=== PATIENT | female | born 1985 ===

== ENCOUNTER 2024-05-29 11:15 | Inpatient (IN) | payer OTHER, SELFPAY ==
[2024-05-29] VITALS (8 sets, daily range): BP systolic 103–123; BP diastolic 42–77; PULSE 73–99; RESP 16–18; TEMP 36.4–37.1; O2SAT 97–99; BMI 24.7
--- NOTE | 2024-05-29 | ECG_ITS ---
Test Reason : SEIZURE Blood Pressure : */* mmHG Vent. Rate : 81 BPM Atrial Rate : 81 BPM P-R Int : 122 ms QRS Dur : 84 ms QT Int : 474 ms P-R-T Axes : 54 28 63 degrees QTcB Int : 550 ms Normal sinus rhythm Low voltage QRS Nonspecific T wave abnormality Prolonged QT Abnormal ECG No previous ECGs available Referred By: Generic ED Physician Electronically Signed By: Gabriel Rush
--- NOTE | ~2024-05-29 | CT_ITS ---
EXAMINATION: CT HEAD WITHOUT CONTRAST CLINICAL INFORMATION: New onset seizure. COMPARISON: None available. TECHNIQUE: Contiguous axial imaging was performed from the skull base to vertex without intravenous administration of contrast. This CT examination was performed using dose optimization techniques as appropriate, variously including the following: *Automated exposure control *Adjustment of mA and/or kV according to patient size (this includes techniques or standardized protocols for targeted exams where dose is matched to indication/reason for exam; i.e. extremities or head) *Use of iterative reconstruction technique FINDINGS: There is no evidence of intracranial hemorrhage or extra-axial fluid collection. There is no mass effect, or edema. No CT evidence of acute territorial infarct. Ventricles, sulci, and cisterns are normal in size and configuration for patient age. No hydrocephalus. No midline shift. Negative hyperdense MCA sign. Negative insular ribbon sign. No white matter abnormality. Normal pituitary. Globes and orbital contents image normally. No extracranial soft tissue abnormalities. Fatty change of the parotid glands. The paranasal sinuses, mastoid air cells, and tympanic cavities are normally aerated. No suspicious bony abnormalities. There are no acute fractures evident. CT/CT head/brain wo IV con IMPRESSION: No acute intracranial abnormality. Electronically signed by: Porfirio Berman MD 05/29/2024 04:43 PM EDT
--- OUTSIDE RECORDS SUMMARY | 2024-05-29 13:07 | XMS_ITS | Encounter Summary ---
Author Organization [facility] Address [address] [place] [address] Care Team Providers Care Policy And Planning Manager Name Role Phone Peng Hernandez MD Primary Care Provider [phone] Encounter Details Date Type Department Care Team ([facility] Contact Info) Description 05/13/2024 [facility] [address] [place] [address] [place] [phone] Peng Hernandez MD [address] [place] [phone] Social History Tobacco Use Types Packs/Day Years Used Date Smoking Tobacco: Some Days Cigarettes Smokeless Tobacco: Never Alcohol Use Standard Drinks/Week Comments Yes 0 (1 standard drink = 0.6 oz pur e alcohol) Comments No Sex and Gender Information Value Date Recorded Sex Assigned at Not on file Legal Sex Female 6:29 PM EST Gender Identity Not on file Sexual Orientation Not on file documented as of this encounter Plan of Treatment Upcoming Encounters Date Type Department Care Team ([facility] Contact Info) Description 06/26/2024 4:00 PM EDT [facility] [address] [place] [phone] Peng Hernandez MD [address] [place] [phone] 09/09/2024 2:30 PM EDT Office Visit Obstetrics [place]necology [address] [phone] Bridget Hernandez CNM [address] [place] [address] documented as of this encounter Visit Diagnoses Not on filedocumented in this encounter Care Teams Policy And Planning Manager Relationship Specialty Start Date End Date Peng Hernandez MD [address] [place] [address] PCP - General Internal Medicine 12/26/23 documented as of this encounter
--- OUTSIDE RECORDS SUMMARY | 2024-05-29 13:07 | XMS_ITS | Clinical Summary ---
Author Organization [place] [address] [address] [facility] Building Address [address] [place] [address] Phone Care Team Providers Care Table Tender Sludge Name Role Phone Peng Hernandez MD Primary Care Provider [phone] Allergies No known active allergies Medications BUPRENORPHINE HCL SL Place 1 mg under the tongue daily. Active busPIRone (BUSPAR) 15 mg tablet Take 1 Tablet by mouth 3 times daily. 04/04/2023 Active ondansetron (ZOFRAN) 4 mg tablet Take 1 Tablet by mouth every 8 hours as needed for Nausea for up to 7 days. 04/04/2023 Active traZODone (DESYREL) 50 mg tablet Take 1/2 tablet by mouth as needed nightly for sleep. 04/04/2023 Active citalopram (CeleXA) 20 mg tablet Take 1 tablet (20 mg total) by mouth 1 (one) time each day. 90 tablet 1 12/26/2023 Active cloNIDine (CATAPRES) 0.2 mg tabletIndication s:Anxiety disorder, unspecified TAKE 1 TABLET BY MOUTH TWICE A DAY 90 tablet 1 03/12/2024 Active citalopram (CeleXA) 40 mg tablet Take 1 tablet (40 mg total) by mouth 1 (one) time each day. 30 each 1 05/14/2024 07/14/19 25 Active Active Problems Problem Noted Date Diagnosed Date Snoring 01/29/2020 Overview (12/04/2023): 12/2019 Home Sleep Study did not reveal sleep apnea or nocturnal hypoxia. Tobacco use disorder 04/08/2012 Anxiety and depression 09/19/2011 Overview (12/04/2023): Sees therapist Opiate dependence ([facility] V24, [facility] V28) 02/2011 Overview (12/04/2023): suboxone Encounters Date Type Department Care Team Description 05/13/2024 Telephone [facility] - [facility] [address] [place] [address] Peng Hernandez MD information needed 05/13/2024 Telephone Pediatrics - [facility] [address] [place] [address] Peng Hernandez MD from Last 3 Months Immunizations Name Administration Dates Next Due Influenza Quadravalent, MDCK , 0.5ml, preservative free (Flucelvax) 6mo and older 01/19/2020 Influenza Quadravalent, MDCK , 0.5ml, with preservative (Flucelvax) 6mo and older 01/16/2017 Tdap Tetanus diptheria acell ular pertussis (Boostrix; Adacel) 7yo and older 01/16/2017 Surgical History Surgery Date Site/Laterality Comments OTHER SURGICAL HISTORY PROCEDURE: ---- OTHER ----; COMMENT: significant dental history with teeth removed Medical History Medical History Date Comments Depression 09/19/2011 DX:Depression Drug abuse and dependence ([facility] V24, [facility] V28) 09/19/2011 DX:Drug abuse and dependence (HCC) Family History Medical History Relation Name Comments Lung cancer Aunt Lung cancer Father Hypertension Maternal Grandmother Lung cancer Maternal Grandmother Other: colon cancerl Maternal Grandmother Diabetes Other 1 great grandmoth er Stroke Other 2 great grandmoth er Breast cancer Paternal Grandfather Coronary artery disease Neg Hx Relation Name Status Comments Aunt Brother Alive Congenital clef t lip Father Alive Lung cancer (+ smoker); blood clots Maternal Grandmother Mother Alive Alcoholism Other 1 Other 2 Paternal Grandfather Sister 1 Alive x4 - Healthy Sister 2 Alive Sister 3 Alive Sister 4 Alive Son Alive x2 - Healthy Social History Tobacco Use Types Packs/Day Years Used Date Smoking Tobacco: Some Days Cigarettes Smokeless Tobacco: Never Tobacco Cessation:Ready to Q uit: Not Asked; Counseling Given: Not Answered Alcohol Use Standard Drinks/Week Comments Yes 0 (1 standard drink = 0.6 oz pur e alcohol) Comments No Sex and Gender Information Value Date Recorded Sex Assigned at Not on file Legal Sex Female 6:29 PM EST Gender Identity Not on file Sexual Orientation Not on file Obstetrics History Last Filed Vital Signs Vital Sign Reading Time Taken Comments Blood Pressure 122/64 12/26/2023 3:31 PM EST Pulse 68 12/26/2023 3:31 PM EST Temperature - - Respiratory Rate 16 12/26/2023 3:31 PM EST Oxygen Saturation - - Inhaled Oxygen Concentration - - Weight 81.2 kg (179 lb) 12/26/2023 3:31 PM EST Height 157.5 cm (5' 2 ) 06/05/2023 11:41 AM EDT Body Mass Index 32.74 06/05/2023 11:41 AM EDT Plan of Treatment Upcoming Encounters Date Type Department Care Team (Late st Contact Info) Description 06/26/2024 4:00 PM EDT Office Visit Internal Medicine - [address] [phone] Peng Hernandez MD [address] [place] [address] 09/09/2024 2:30 PM EDT Office Visit Obstetrics and Gynecology - [address] [phone] Bridget Hernandez CNM [address] [place] [phone] Health Maintenance Due Date Last Done Comments Breast Cancer Screening 1985 Hepatitis B Vaccines (1 of 3 - 19+ 3-dose series) 11/19/2002 Pneumococcal Vaccine: Pediatrics (0 to 5 Years) and At-Risk Patients (6 to 64 Years) (1 of 2 - PCV) 11/19/2002 Social Influencers of Health Screening 01/27/2022 COVID-19 Vaccine (1 - 2023-2 5 season) 2023 Cholesterol Screening (Lipid Panel) 08/18/2024 08/19/2019 Depression Screening 08/19/2024 08/20/2023 Influenza Vaccine (Season Ended) 2024 01/19/2020, 01/16/2017 Cervical Cancer Screening: HPV 01/24/2025 01/25/2020 DTaP,Tdap,and Td Vaccines (2 - Td or Tdap) 01/16/2027 01/16/2017 HIV Screening Completed 01/16/2017 Hepatitis C Screening Completed 01/16/2017 HIB Vaccines Aged Out No longer eligi ble based on patient's age to complete this topic HPV Vaccines Aged Out No longer eligi ble based on patient's age to complete this topic Hepatitis A Vaccines Aged Out No long er eligible based on patient's age to complete this topic IPV Vaccines Aged Out No longer eligi ble based on patient's age to complete this topic MMR Vaccines Aged Out No longer eligi ble based on patient's age to complete this topic Meningococcal ACWY Vaccine Aged Out N o longer eligible based on patient's age to complete this topic Meningococcal B Vaccine Aged Out No l onger eligible based on patient's age to complete this topic RSV Immunization Patients Under 20 months Aged Out No longer eligible b ased on patient's age to complete this topic Varicella Vaccines Aged Out No longer eligible based on patient's age to complete this topic Procedures Procedure Name Priority Date/Time Associated Diagnosis Comments DEPRESSION SCREENING Routine 08/20/2023 HPV Routine 01/25/2020 LIPID PANEL Routine 08/19/2019 HEPATITIS C SCREENING Routine 01/16/2017 HIV SCREENING Routine 01/16/2017 from Last 3 Months or Most Recently Relevant to Health Maintenance Results * Depression Screening (08/20/2023) Pathologist [facility] Depression Screening abstracted us Historical Provider MD HEALTH MAINTENANCE Final Result * Cervical Cancer Screening: HPV (01/25/2020) Pathologist [facility] Cervical Cancer Screening: HPV negative, abstracted [facility] Provider HEALTH MAINTENANCE Final Result * (ABNORMAL) Lipid panel (08/19/2019) [facility] LDL/HDL Ratio 5(A) 0 - 4 Triglycerides 63 0 - 150 mg/dL Cholesterol 195 0 - 200 mg/dL HDL 42 >=40 mg/dL LDL Cholesterol 141(A) 0 - 100 mg/dL Blood Venous blood specimen / Unknown Result [facility] Provider LAB BLOOD ORDERABLES Anaya l Result * HIV Screening (01/16/2017) [facility] HIV Screening abstracted Result [facility] Provider HEALTH MAINTENANCE Final Result * Hepatitis C Screening (01/16/2017) [facility] Hepatitis C Screening abstracted [facility] Provider HEALTH MAINTENANCE Final Result from Last 3 Months or Most Recently Relevant to Health Maintenance Insurance * Guarantor: Amber Leblanc Account Type Relation to Patient Date of Phone Billing Address Personal/Family Self 1985 [address] [place] [address] [facility] Care Teams Table Tender Sludge Relationship Specialty Start Date End Date Peng Hernandez MD [address] [place] [phone] PCP - General Internal Medicine 12/26/23
[2024-05-29 13:08] LABS: MANUAL DIFF FLAG NO
[2024-05-29] MEDS: LORazepam 1 MG TABLET 2 MG PO (13:08)
[2024-05-29] MEDS: PHENobarbitaL sodium 130 MG/ML IM ONCE 229 MG IM (13:09)
[2024-05-29 13:12] LABS: Basophils Percent Auto 0.9 % (0-2); Eosinophils Percent Auto 0.9 % (0-4); Hematocrit 33.8 % (37.0-47.0); Hemoglobin 11.9 g/dl (12.0-16.0); Imm Gran Abs Auto 0.02 X10*3/uL (0.00-0.03); Imm Gran Pct Auto 0.5 % (0.0-0.4); Lymphocytes Absolute Auto 0.5 X10*3/uL (1.2-4.9); Lymphocytes Percent Auto 10.8 % (20-40); Mean Corpuscular HGB Conc 35.2 g/dl (31.0-35.0); Mean Corpuscular Hemoglobin 33.7 pg (27.0-33.0); Mean Corpuscular Volume 95.8 fL (80.0-98.0); Mean Platelet Volume 12.1 fL (9.4-12.3); Monocytes Absolute Auto 0.2 X10*3/uL (0.1-1.2); Monocytes Percent Auto 4.1 % (2-11); Neutrophils Absolute Auto 3.6 x10*3/uL (2.0-8.3); Neutrophils Percent Auto 82.8 % (45-73); Red Blood Count 3.53 X10*6/uL (4.20-5.50); Red Cell Distribution Width 12.7 % (11.0-16.0); White Blood Count 4.3 X10*3/uL (4.8-10.8)
[2024-05-29 13:16] LABS: Platelet Count 93 X10*3/uL (160-400)
[2024-05-29 13:24] LABS: Alanine Aminotransferase 172 U/L (0-31); Albumin Level 3.7 g/dL (3.5-5.0); Alkaline Phosphatase 81 U/L (39-117); Anion Gap 15 (12-20); Aspartate Amino Transferase 243 U/L (5-31); Blood Urea Nitrogen 8 mg/dL (9-16); Calcium 8.4 mg/dL (8.4-10.2); Carbon Dioxide 23 mmol/L (22-29); Chloride 105 mmol/L (96-108); Creatinine Clr Calc Pharmacy 110.5; Estimated Glomerular Filt Rate > 60; Ethanol 41 mg/dL; Glucose Random 163 mg/dL (60-115); Potassium 3.2 mmol/L (3.3-5.1); Sodium 140 mmol/L (135-145); Total Protein 6.2 g/dL (6.5-8.0)
[2024-05-29 13:26] LABS: Lactic Acid 4.2 mmol/L (0.5-2.0)
[2024-05-29 13:28] LABS: Lipase 122 U/L (8-78); Magnesium 1.4 mg/dL (1.6-2.6)
--- NOTE | 2024-05-29 13:29 | ED_ITS ---
HPI - Seizure General Chief Complaint: Seizure Stated Complaint: ETOH WITHDRAWAL,SEIZURE X 2 WITNESSED PER EMS Time Seen by Provider: 05/29/24 12:31 Source: patient, EMS, RN notes reviewed and old records reviewed Mode of arrival: EMS History of Present Illness ED Provider: Edna Cho PA-C HPI Narrative: 38-year-old female with a past medical history of ETOH abuse presenting to the ED via EMS from outpatient dual program at [facility] s/p 2 witnessed tonic- clonic seizures by staff. no reported head trauma, patient was lowered to ground. Admits to drinking about 4 drinks of vodka daily, last drink last night, states she is trying to stop drinking. Denies history of seizures, denies history of alcohol withdrawal seizures, hallucinations, headache, neck/ back pain, CP/ SOB, abdominal pain, nausea /vomiting, recent illness. Denies drug use. Related Data Allergies Allergy/AdvReac Type Severity Reaction Status Date / Time No Known Allergies Allergy Verified 05/29/24 11:44 Review of Systems 2 Review of Systems: Yes all other systems are reviewed and are negative Constitutional: Constitutional: Reports as per HPI Neurologic: Denies Abnormal speech present [facility] Past Medical History Attestation statement: The following information was validated with the patient. Source: old records reviewed Social History Social History Alcohol intake: current Alcohol intake frequency: 3 or more drinks per day Smoked in Last 30 Days: No Advance Directives: No Advance Directives Information Provided: Yes Patient : No Physical Exam 2 Vital Signs: Vital Signs: Last Vital Signs Temp 98.7 F 05/29/24 13:32 Pulse 82 05/29/24 13:32 Resp 18 05/29/24 13:32 BP 123/42 L 05/29/24 13:32 Pulse Ox 97 05/29/24 13:32 O2 Del Method Room Air 05/29/24 13:32 BMI result Body Mass Index 24.7 Const: General: cooperative, healthy appearing and no acute distress O rientation/consciousness: patient oriented x3 Limitations: no limitations HEENT: Head: Yes normal to inspection and Yes atraumatic Ears: hearing grossly normal bilaterally General nose exam: Normal external nose present Face and sinus: Yes normal facial exam Eyes: General: appearance normal, both eyes and all related structures EOM: EOMs intact bilaterally Neck: Neck: Yes normal visual inspection and Yes no meningeal signs Resp: Effort & Inspection: normal respiratory effort and no respiratory distress Auscultation: clear to auscultation bilaterally Cardio: Rate: regular rate Heart sounds: S1 normal heart sound present and S2 normal heart sound present GI: Inspection: Yes normal to inspection Palpation (GI): Soft to palpation, nontender, no guarding and not rigid Back/Spine/Pelvis: Other: No midline cervical/thoracic/lumbar spinous tenderness/step-off or deformity Skin: Rashes: no rashes Wounds: no wounds Neuro: Other: no tongue fasciculations General: patient oriented x3, tone normal, moves all extremities, no meningeal signs, no focal motor deficits and CN's II-XI intact bilaterally C ranial nerves: Yes CN's II-XII intact bilaterally and Yes Bilaterally intact EOM present Cognition (Neuro): normal cognition Speech: No Abnormal speech present Motor exam (neuro): 5/5 motor strength present throughout and Tremors during motor activity present ( mildly tremulous) Extrem: General: Yes normal to inspection Course Course Course Narrative: -1400-- Mildly leukopenic, no priors to compare. Potassium low to 3.2 > p.o. repletion ordered. Lactic acidosis of 4.2 consistent with seizure-like activity. - Magnesium low 1.4 > 2 g IV repletion ordered - AST/ALT and lipase elevated likely from ETOH abuse > abdomen is soft and nontender - ethanol 41. Viral testing negative > plan to admit for further management Medications Administered Generic Name Dose Route Start Last Admin Trade Name Freq PRN Reason Stop Dose Admin Sodium Chloride 1,000 mls @ 999 mls/hr 05/29/24 13:30 05/29/24 13:41 Ns IV 05/29/24 14:30 999 mls/hr .Q1H1M [facility] Administration Discontinued Medications Generic Name Dose Route Start Last Admin Trade Name Freq PRN Reason Stop Dose Admin Lorazepam 2 mg 05/29/24 12:37 05/29/24 13:08 Lorazepam 1 Mg Tablet PO 05/29/24 12:38 2 mg ONCE ONE Administration Phenobarbital Sodium 229 mg 05/29/24 13:00 05/29/24 13:09 Phenobarbital Sodium 130 Mg/Ml Im Once IM 05/29/24 13:01 229 mg ONCE ONE Administration Medical Decision Making Medical Decision Making [facility] Narrative: 38-year-old female with a past medical history of ETOH abuse presenting to the ED via EMS from outpatient dual program at [facility] s/p 2 witnessed tonic- clonic seizures by staff. On exam vital signs stable, NAD, nontoxic appearing, physical exam as noted above. No focal neuro deficits. Mildly tremulous. No midline spinous tenderness. Concern for ETOH withdrawal seizure. Rule out metabolic infectious etiologies. Low suspicion for ICH or fractures Plan: EKG, labs, UA, tox screen, p.o. Ativan, phenobarb protocol, admission Please refer to course for remaining clinical decision making, interpretation of labs/imaging results, and discussions with consultants and/or family members. Differential Diagnosis Differential Diagnoses: The differential diagnosis associated with the presentation includes As above Admission/Observation Consideration of admission/observation: Escalation of care including admission/observation considered Lab Data [facility] Lab Attestation statement: I reviewed the patient's lab results. 05/29/24 13:00 05/29/24 13:00 Labs: Lab Results 05/29/24 05/29/24 05/29/24 Range/Units 13:00 13:01 13:02 WBC 4.3 L (4.8-10.8) X10*3/uL RBC 3.53 L (4.20-5.50) X10*6/uL Hgb 11.9 L (12.0-16.0) g/dl Hct 33.8 L (37.0-47.0) % MCV 95.8 (80.0-98.0) fL MCH 33.7 H (27.0-33.0) pg MCHC 35.2 H (31.0-35.0) g/dl RDW 12.7 (11.0-16.0) % Plt Count 93 L (160-400) X10*3/uL MPV 12.1 (9.4-12.3) fL Immature Gran % (Auto) 0.5 H (0.0-0.4) % Neut % (Auto) 82.8 H (45-73) % Lymph % (Auto) 10.8 L (20-40) % [place] % (Auto) 4.1 (2-11) % Eos % (Auto) 0.9 (0-4) % Baso % (Auto) 0.9 (0-2) % Lymph # (Auto) 0.5 L (1.2-4.9) X10*3/uL [place] # (Auto) 0.2 (0.1-1.2) X10*3/uL Eos # (Auto) 0.0 (0.0-0.4) X10*3/uL Baso # (Auto) 0.0 (0.0-0.2) X10*3/uL Abs Immat Gran (auto) 0.02 (0.00-0.03) X10*3/uL Absolute Neuts (auto) 3.6 (2.0-8.3) x10*3/uL Absolute Nucleated RBC 0.000 (0.0-0.012) X10*3/uL Nucleated RBC % (auto) 0.0 (0.0-0.2) /100WBC Sodium 140 (135-145) mmol/L Potassium 3.2 L (3.3-5.1) mmol/L Chloride 105 (96-108) mmol/L Carbon Dioxide 23 (22-29) mmol/L Anion Gap 15 (12-20) BUN 8 L (9-16) mg/dL Creatinine 0.56 (0.5-1.4) mg/dL Estim Creat Clear Calc 110.5 Estimated GFR > 60 Random Glucose 163 H (60-115) mg/dL Lactic Acid 4.2 H* (0.5-2.0) mmol/L Calcium 8.4 (8.4-10.2) mg/dL Magnesium 1.4 L* (1.6-2.6) mg/dL Total Bilirubin 1.0 (0.0-1.0) mg/dL AST 243 H (5-31) U/L ALT 172 H (0-31) U/L Alkaline Phosphatase 81 (39-117) U/L Total Protein 6.2 L (6.5-8.0) g/dL Albumin 3.7 (3.5-5.0) g/dL Lipase 122 H (8-78) U/L Ethyl Alcohol 41 mg/dL Influenza Type A (PCR) NEGATIVE (Negative) Influenza Type B (PCR) NEGATIVE (Negative) RSV RNA Qual (PCR) NEGATIVE (Negative) SARS-CoV-2 RNA (RT-PCR) NEGATIVE (Negative) Independent Interpretation I performed an independent interpretation of an: EKG Radiology Impression Discussion of test interpretation with radiology: I have reviewed the radiologist's reading. Independent Historian Clinical information obtained from an independent historian. History obtained from or confirmed by: EMS External Record Review External record reviewed: Inpatient record, Office record, Outpatient record, Prior outpatient labs, Prior outpatient radiology, Primary care record and Outside ED record Tests considered The following testing was considered but not selected: As above Prescription Management I considered prescription management with: Pain Medication Chronic Conditions Patient?s care impacted by: Other Social Determinants Patient?s care significantly limited by Social Determinants of Health including: Inadequate housing, Low income, Alcoholism and drug addiction in family, Problems related to primary support group, Unemployment, Problems related to employment and Other Social Determinant of Health Critical Care Time Critical Care Time Critical Care Time: Yes Total Critical Care Time: 35 Attestation: I have personally provided critical care time exclusive of time spent on separately billable procedures. Time includes review of lab data, radiology results, discussion with consultants, and monitoring for potential decompensation. Intervention performed as documented. Discharge Plan Discharge Clinical Impression: Alcohol withdrawal seizure Patient Disposition: Admitted As Inpatient Print Language: Romanian
[2024-05-29] MEDS: 0.9 % Sodium Chloride 1,000 ML 999 ML IV (13:41)
[2024-05-29 13:47] LABS: Influenza A PCR NEGATIVE (Negative); Influenza B PCR NEGATIVE (Negative); Resp Syncy Virus RNA Qual PCR NEGATIVE (Negative); SARS COV2 PCR INHOUSE NEGATIVE (Negative)
--- NOTE | 2024-05-29 14:08 | PM.IMHP ---
History of Present Illness Date of Service: 05/29/24 Attending physician on admission: Ramy Hdez Chief Complaint: Alcohol withdrawal Pt is a 38-year-old female with a PMH significant for alcohol use disorder and depression?who presents to the ED after 2 witnessed episodes of unresponsiveness with tonic-clonic like movements. Pt has been feeling increasingly depressed the past few months and recently started in outpatient therapy program at [facility]. Today pt was hoping to meet with a therapist to discuss medication changes. Was sitting in a group session when had two [id number] episodes of unresponsiveness with tonic-clonic like activity that was witnessed by staff. Pt was lowered to the ground by staff and participants, and did not have head strike or other trauma. EMS report pt was postictal, though was alert and oriented by the time she arrived to the ED. Pt does not remember this incident and denies any hx of previous seizures or alcohol withdrawal. Pt states that she has been drinking daily for the past few months. States ?something is broke in the and I am trying to numb it?. Last drink was last night before bedtime. Pt states has been drinking for ?strong? vodka drinks daily, often starting drinking when she wakes up. Pt has attempted to cut back on drinking at various times, but reports drank her normal amount yesterday. Admits to increased anxiety, but currently denies headache. No nausea, vomiting, abdominal pain. Denies auditory, visual, or tactile hallucinations. In the ED pt with elevated HR of 94, vitals otherwise stable and WNL. Labs were significant for mild normocytic anemia of 11.9 over 33.8, platelets 93, potassium 3.2, lactic acid 4.2, magnesium 1.4, AST 243, ALT 172, and lipase 122. Ethyl alcohol level 41. Tested negative for flu, COVID, RSV. EKG demonstrated normal sinus rhythm with prolonged QTc of 550 but no evidence of significant ST elevations or depressions. Pt was treated in the ED with IVF, Ativan 2 mg p.o., and started on phenobarb protocol. Pt admitted to the hospital for treatment and further evaluation of seizure-like activity in setting of acute alcohol withdrawal. Review of Systems Review of Systems: Negative except for that which is stated in the HPI. [facility] Medical History (Updated 05/29/24 @ 15:58 by ANTONINO Lyons) Depression Alcohol use disorder Social History Alcohol intake: current Alcohol intake frequency: 3 or more drinks per day Smoked in Last 30 Days: No Advance Directives: No Advance Directives Information Provided: Yes Patient : No Meds Allergies Allergy/AdvReac Type Severity Reaction Status Date / Time No Known Allergies Allergy Verified 05/29/24 11:44 Active Medications: Current Medications Sodium Chloride (Ns) 1,000 mls @ 999 mls/hr IV .Q1H1M BRIAN Stop: 05/29/24 14:30 Last Admin: 05/29/24 13:41 Dose: 999 mls/hr Magnesium Sulfate (Magnesium Sulfate/H2o) 2 gm in 50 mls @ 25 mls/hr IV ONCE ONE Stop: 05/29/24 16:00 Pharmacy Consult (Consult Rx Etoh Phenob Im/Po) 1 each MISCELLANE ONCE PRN; Protocol PRN Reason: Consult order Phenobarbital (Phenobarbital 30 Mg Tablet) 30 mg PO BID [facility] Stop: 05/31/24 21:01 Phenobarbital (Phenobarbital 15 Mg Tablet) 15 mg PO BID [facility] Stop: 06/02/24 21:01 Phenobarbital (Phenobarbital 15 Mg Tablet) 15 mg PO DAILY [facility] Stop: 06/04/24 09:01 Phenobarbital Sodium (Phenobarbital Sodium 130 Mg/Ml Vial Im Q3hx2) 172 mg IM Q3H [facility] Stop: 05/29/24 19:01 Home Medications ?Medication ?Instructions ?Recorded ?Confirmed ?Last Taken ?Type buspirone 15 mg tablet 15 mg PO TID 05/29/24 05/29/24 Unknown History citalopram 20 mg tablet 20 mg PO DAILY 05/29/24 05/29/24 Unknown History clonidine HCl 0.2 mg tablet 0.2 mg PO BID 05/29/24 05/29/24 Unknown History Physical Exam Vital Signs and Narrative: Vital Signs: Last Vital Signs Temp 98.7 F 05/29/24 13:32 Pulse 82 05/29/24 13:32 Resp 18 05/29/24 13:32 BP 123/42 L 05/29/24 13:32 Pulse Ox 97 05/29/24 13:32 O2 Del Method Room Air 05/29/24 13:32 BMI result Body Mass Index 24.7 General: AOx3. Somnolent but arousable, answering questions appropriately. In no acute distress Resp: CTA bilaterally CVS: S1, S2, RRR GI: +BS, NT, no distention Skin: Warm, dry Neuro: Cranial nerves II-XII grossly intact bilaterally. Motor grossly intact bilaterally. Moderate tremors of upper extremities bilaterally. Extremities: No edema Psych: Appropriate affect Results Labs 05/29/24 13:00 05/29/24 13:00 Labs: Laboratory Results - last 24 hr 05/29/24 05/29/24 05/29/24 13:00 13:01 13:02 MCV 95.8 MCH 33.7 H MCHC 35.2 H RDW 12.7 Plt Count 93 L MPV 12.1 Immature Gran % (Auto) 0.5 H Neut % (Auto) 82.8 H Lymph % (Auto) 10.8 L [place] % (Auto) 4.1 Eos % (Auto) 0.9 Baso % (Auto) 0.9 Lymph # (Auto) 0.5 L [place] # (Auto) 0.2 Eos # (Auto) 0.0 Baso # (Auto) 0.0 Abs Immat Gran (auto) 0.02 Absolute Neuts (auto) 3.6 Absolute Nucleated RBC 0.000 Nucleated RBC % (auto) 0.0 Anion Gap 15 Estim Creat Clear Calc 110.5 Estimated GFR > 60 Random Glucose 163 H Lactic Acid 4.2 H* Calcium 8.4 Magnesium 1.4 L* Total Bilirubin 1.0 AST 243 H ALT 172 H Alkaline Phosphatase 81 Total Protein 6.2 L Albumin 3.7 Lipase 122 H Ethyl Alcohol 41 Influenza Type A (PCR) NEGATIVE Influenza Type B (PCR) NEGATIVE RSV RNA Qual (PCR) NEGATIVE SARS-CoV-2 RNA (RT-PCR) NEGATIVE Assessment and Plan (1) Seizure-like activity: Status: Acute Plan Pt is a 38-year-old female with a PMH significant for alcohol use disorder and depression?who presents to the ED after 2 witnessed episodes of unresponsiveness with tonic-clonic like movements. Pt admitted to the hospital for treatment and further evaluation of seizure-like activity in setting of acute alcohol withdrawal. Acute alcohol withdrawal Pt with 2 episodes of seizure-like activity witnessed by staff and group at outpatient program at [facility] EMS report pt postictal though alert and oriented by time of arrival to the ED Pt has been drinking heavily daily for the past few months Denies hx of alcohol withdrawal or hx of seizures Pt tremulous upon exam Will treat with phenobarb protocol Monitor on CIWA Folic acid, daily multivitamin, thiamine CT of head to r/o intracranial abnormalities Seizure precautions Addiction medicine consult Monitor on telemetry Hypokalemia, mild Potassium 3.2 at time of presentation Likely in the setting of alcohol use disorder Pt given potassium supplementation in the ED Trend labs Hypomagnesemia Magnesium 1.4 at time of presentation Likely in the setting of alcohol use disorder Pt given Mag 2 g IV in the ED Follow Mag Prolonged QTc EKG with QTc of 550 Likely secondary to alcohol withdrawal seizure Avoid QT prolonging agents Repeat EKG in the morning Monitor on telemetry Acute lactic acidosis Lactic acid 4.2 at time of presentation Likely secondary to seizures, not sepsis No indication for antibiotics at this time Follow lactic acid Transaminitis Likely secondary to acute alcoholic hepatitis Will check PT, INR, PTT tomorrow Will check hepatitis panel tomorrow Depression Continue buspirone, citalopram, and clonidine Full Code Attending:?Dr. Hdez DVT Prophylaxis: Lovenox Pt will require a hospitalization of at least two nights for treatment of?seizure-like activity in the setting of acute alcohol withdrawal concerning for alcohol withdrawal seizures. Pt will require close cardiac and neurologic monitoring as well as administration of phenobarb protocol. Quality Stroke Does the patient have a stroke diagnosis?: No VTE Prior VTE?: No VTE Risk Level:: Medical - moderate - high VTE Device Contraindication: Treatment Not Indicated VTE Drug Contraindication: N/A - Med Ordered
[2024-05-29] MEDS: Magnesium Sulfate/H2O 2 GM/50 ML PIGGYBACK IV (14:28)
[2024-05-29] MEDS: Potassium Chloride Packet 20 MEQ PACKET 40 MEQ PO (14:28)
--- NOTE | 2024-05-29 14:33 | PHA.MEDREC ---
Addendum entered by Mandie Meza RPh 05/29/24 14:35: reviewed by [facility]. Original Note: Pharmacy Consult ? Medication Reconciliation Pharmacy has completed the medication reconciliation. Spoke to patient to confirm med list. patient was able to name all her medications.
[2024-05-29 15:06] LABS: Reflex Lactate? Lactic Acid Added
[2024-05-29] MEDS: Thiamine HCL 100 MG TABLET PO (15:19)
[2024-05-29] MEDS: Multivitamin TABLET 1 TAB PO (15:19)
[2024-05-29] MEDS: Folic Acid 1 MG TABLET PO (15:19)
[2024-05-29 15:39] LABS: ~Lactic Acid-LAB USE ONLY 1.6 mmol/L (0.5-2.0)
[2024-05-29] MEDS: 0.9 % Sodium Chloride Flush 3 ML SYRINGE IVFLUSH ×2 (17:01→21:11)
[2024-05-29] MEDS: PHENobarbitaL sodium 130 MG/ML VIAL IM Q3Hx2 172 MG IM ×2 (17:01→20:10)
--- NOTE | 2024-05-29 19:09 | PC.NURSE ---
Pt marianna from outpatient dual program @ [place]. Per staff, pt has 2 [id number] tonic clonic seizures, -HS, -Fall. Upon arrival, pt a/ox3, respirations even and unlabored, no increased wob/sob noted, maintaining O2 sat on RA- high 90s. 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 Pt states no hx of seizures. Daily drinker of Vodka, per pt approx 4 drinks per day. Last drink last night per pt. Seizure pads placed, continuous O2 monitoring on pt for safety. CIWAs 5-7, provider aware. Call vasquez within reach, all needs met at this time.
[2024-05-29] MEDS: busPIRone HCl 5 MG TABLET 15 MG PO (21:11)
[2024-05-29] MEDS: Famotidine 20 MG TABLET PO (21:11)
[2024-05-29] MEDS: cloNIDine HCL 0.2 MG TABLET PO (21:11)
[2024-05-30 03:49] VITALS: BP 107/63; PULSE 64; RESP 14; TEMP 36.6; O2SAT 99
[2024-05-30 06:50] LABS: Prothrombin Time 11.4 SEC (10.9-12.4)
[2024-05-30 06:53] LABS: Partial Thromboplastin Time 29.8 SEC (26.0-36.8)
[2024-05-30 07:05] LABS: Anion Gap 12 (12-20); Blood Urea Nitrogen 7 mg/dL (9-16); Calcium 8.5 mg/dL (8.4-10.2); Carbon Dioxide 26 mmol/L (22-29); Chloride 105 mmol/L (96-108); Creatinine Clr Calc Pharmacy 108.5; Estimated Glomerular Filt Rate > 60; Glucose Random 104 mg/dL (60-115); Potassium 3.2 mmol/L (3.3-5.1); Sodium 140 mmol/L (135-145)
[2024-05-30 07:15] VITALS: BP 103/58; PULSE 67; RESP 18; TEMP 36.8; O2SAT 97
[2024-05-30] MEDS: Multivitamin TABLET 1 TAB PO (07:45)
[2024-05-30] MEDS: Famotidine 20 MG TABLET PO ×2 (07:45→21:20)
[2024-05-30] MEDS: Folic Acid 1 MG TABLET PO (07:45)
[2024-05-30] MEDS: PHENobarbitaL 30 MG TABLET PO ×2 (07:45→21:19)
[2024-05-30] MEDS: Thiamine HCL 100 MG TABLET PO (07:45)
[2024-05-30] MEDS: Escitalopram Oxalate 10 MG TABLET PO (07:45)
[2024-05-30] MEDS: cloNIDine HCL 0.2 MG TABLET PO ×2 (07:46→21:19)
[2024-05-30] MEDS: Acetaminophen 325 MG TABLET 650 MG PO (07:46)
[2024-05-30 07:49] LABS: Hematocrit 35.2 % (37.0-47.0); Hemoglobin 11.9 g/dl (12.0-16.0); Mean Corpuscular HGB Conc 33.8 g/dl (31.0-35.0); Mean Corpuscular Hemoglobin 33.4 pg (27.0-33.0); Mean Corpuscular Volume 98.9 fL (80.0-98.0); Mean Platelet Volume 13.3 fL (9.4-12.3); Red Blood Count 3.56 X10*6/uL (4.20-5.50); Red Cell Distribution Width 12.5 % (11.0-16.0); White Blood Count 3.8 X10*3/uL (4.8-10.8)
[2024-05-30] MEDS: Potassium Chloride Packet 20 MEQ PACKET 40 MEQ PO ×2 (07:53→21:19)
[2024-05-30] MEDS: 0.9 % Sodium Chloride Flush 3 ML SYRINGE IVFLUSH ×3 (07:53→21:21)
[2024-05-30 07:57] LABS: Platelet Count 96 X10*3/uL (160-400)
[2024-05-30] MEDS: busPIRone HCl 5 MG TABLET 15 MG PO ×3 (07:58→21:20)
[2024-05-30 11:06] VITALS: BP 101/57; PULSE 89; RESP 17; TEMP 36.6; O2SAT 98
--- NOTE | 2024-05-30 11:45 | MHC.CM.PN ---
Pt lives with her ayodren, no home health services or DME, PCP is Peng Hernandez. Pt will need a ride home at [place]. DCP: home, self care. CM to follow for DC needs.
--- NOTE | 2024-05-30 14:06 | P.PNIM_ITS ---
Subjective Subjective Date of Service: 05/30/24 Interval History: No acute issues overall. CIWA 0. Review of Systems Denies chest pain Denies shortness of breath Denies nausea vomiting diarrhea Denies fever chills Physical Exam 2 Vital Signs: Vital Signs: Last Vital Signs Temp 98 F 05/30/24 11:06 Pulse 89 05/30/24 11:06 Resp 17 05/30/24 11:06 BP 101/57 L 05/30/24 11:06 Pulse Ox 98 05/30/24 11:06 O2 Del Method Room Air 05/30/24 11:06 BMI result Body Mass Index 24.7 Const: Other: Awake alert oriented x3 no acute distress Resp: Other: Clear to auscultation bilaterally no rales rhonchi or wheezes Cardio: Other: No S4; positive S1-S2; no S3 murmurs rubs or gallops GI: Other: Soft nontender nondistended normoactive bowel sounds Extrem: Other: No edema bilaterally Objective Data Active Medications Acetaminophen (Acetaminophen 325 Mg Tablet) 650 mg PO Q6H PRN PRN Reason: Pain, Mild 1-3,fever,headache Last Admin: 05/30/24 07:46 Dose: 650 mg Documented By: LORENA Buspirone HCl (Buspirone Hcl 5 Mg Tablet) 15 mg PO TID [facility] Last Admin: 05/30/24 07:58 Dose: 15 mg Documented By: LORENA Calcium Carbonate (Calcium Carbonate 750 Mg Tab.Chew) 750 mg PO Q4H PRN PRN Reason: Heartburn Clonidine HCl (Clonidine Hcl 0.2 Mg Tablet) 0.2 mg PO BID [facility]; Protocol Last Admin: 05/30/24 07:46 Dose: 0.2 mg Documented By: LORENA Enoxaparin Sodium (Enoxaparin Sodium 40 Mg/0.4 Ml Syringe) 40 mg SUBCUT Q24H [facility] Last Admin: 05/29/24 15:24 Dose: Not Given Documented By: ABELINO Non-Admin Reason: Patient Refused Comments: Pt refused med, education given. Escitalopram Oxalate (Escitalopram Oxalate 10 Mg Tablet) 10 mg PO DAILY [facility] Last Admin: 05/30/24 07:45 Dose: 10 mg Documented By: LORENA Famotidine (Famotidine 20 Mg Tablet) 20 mg PO BID [facility] Last Admin: 05/30/24 07:45 Dose: 20 mg Documented By: LORENA Folic Acid (Folic Acid 1 Mg Tablet) 1 mg PO DAILY [facility] Stop: 06/01/24 14:54 Last Admin: 05/30/24 07:45 Dose: 1 mg Documented By: LORENA Magnesium Hydroxide (Milk Of Magnesia 30 Ml Oral.Susp) 30 ml PO DAILY PRN PRN Reason: Constipation Multivitamins/Vitamin C (Multivitamin Tablet) 1 tab PO DAILY [facility] Stop: 06/01/24 14:54 Last Admin: 05/30/24 07:45 Dose: 1 tab Documented By: LORENA Pharmacy Consult (Consult Rx Etoh Phenob Im/Po) 1 each MISCELLANE ONCE PRN; Protocol PRN Reason: Consult order Phenobarbital (Phenobarbital 30 Mg Tablet) 30 mg PO BID [facility] Stop: 05/31/24 21:01 Last Admin: 05/30/24 07:45 Dose: 30 mg Documented By: LORENA Phenobarbital (Phenobarbital 15 Mg Tablet) 15 mg PO BID [facility] Stop: 06/02/24 21:01 Phenobarbital (Phenobarbital 15 Mg Tablet) 15 mg PO DAILY [facility] Stop: 06/04/24 09:01 Potassium Chloride (Potassium Chloride Packet 20 Meq Packet) 40 meq PO BID [facility] Stop: 05/31/24 09:01 Last Admin: 05/30/24 07:53 Dose: 40 meq Documented By: LORENA Sodium Chloride (0.9 % Sodium Chloride Flush 3 Ml Syringe) 3 ml IVFLUSH QSHIFT [facility] Last Admin: 05/30/24 07:53 Dose: 3 ml Documented By: LORENA Thiamine HCl (Thiamine Hcl 100 Mg Tablet) 100 mg PO DAILY [facility] Stop: 06/01/24 14:59 Last Admin: 05/30/24 07:45 Dose: 100 mg Documented By: LORENA Labs 05/30/24 05:48 05/30/24 05:48 Labs: Laboratory Results - last 24 hr 05/29/24 05/30/24 15:17 05:48 MCV 98.9 H MCH 33.4 H MCHC 33.8 RDW 12.5 Plt Count 96 L MPV 13.3 H Absolute Nucleated RBC 0.000 Nucleated RBC % (auto) 0.0 PT 11.4 INR 1.0 APTT 29.8 Anion Gap 12 Estim Creat Clear Calc 108.5 Estimated GFR > 60 Random Glucose 104 Lactic Acid F/U @ 2Hr 1.6 Calcium 8.5 Magnesium 2.0 Assessment and Plan (1) Alcohol withdrawal seizure: Status: Acute (2) Seizure-like activity: Status: Acute Plan Pt is a 38-year-old female with a PMH significant for alcohol use disorder and depression?who presents to the ED after 2 witnessed episodes of unresponsiveness with tonic-clonic like movements. Pt admitted to the hospital for treatment and further evaluation of seizure-like activity in setting of acute alcohol withdrawal. 1.Acute alcohol withdrawal w/seizures -Addiction medicine consult -likely resume [place] IOP on Saturday -await addiction consult 2.Hypokalemia, mild -continue potassium repletion -follow renal/divalents 3.Transaminitis -follow clinically slowly trending downward Depression Continue buspirone, citalopram, and clonidine Full Code Attending:?Dr. Hdez DVT Prophylaxis: [place] Analysisx Quality Stroke Does the patient have a stroke diagnosis?: No VTE Prior VTE?: No VTE Risk Level:: Medical - moderate - high VTE Device Contraindication: Treatment Not Indicated VTE Drug Contraindication: N/A - Med Ordered
[2024-05-30 15:38] VITALS: BP 109/65; PULSE 90; RESP 18; TEMP 36.4; O2SAT 100
[2024-05-30] MEDS: Enoxaparin Sodium 40 MG/0.4 ML SYRINGE SUBCUT (15:49)
[2024-05-30 20:00] VITALS: BP 112/61; PULSE 83; RESP 18; TEMP 37.4; O2SAT 99
[2024-05-30 23:35] VITALS: BP 117/57; PULSE 64; RESP 18; TEMP 36.6; O2SAT 99
[2024-05-31 03:26] VITALS: BP 115/75; PULSE 77; RESP 18; TEMP 36.8; O2SAT 100
[2024-05-31 07:52] VITALS: BP 100/60; PULSE 59; RESP 16; TEMP 36.9; O2SAT 99
[2024-05-31 07:59] LABS: Anion Gap 8 (12-20); Blood Urea Nitrogen 7 mg/dL (9-16); Calcium 8.4 mg/dL (8.4-10.2); Carbon Dioxide 29 mmol/L (22-29); Chloride 106 mmol/L (96-108); Creatinine Clr Calc Pharmacy 106.7; Estimated Glomerular Filt Rate > 60; Glucose Random 89 mg/dL (60-115); Potassium 3.5 mmol/L (3.3-5.1); Sodium 139 mmol/L (135-145)
[2024-05-31] MEDS: Potassium Chloride Packet 20 MEQ PACKET 40 MEQ PO (08:03)
[2024-05-31] MEDS: cloNIDine HCL 0.2 MG TABLET PO (08:04)
[2024-05-31] MEDS: PHENobarbitaL 30 MG TABLET PO (08:04)
[2024-05-31] MEDS: busPIRone HCl 5 MG TABLET 15 MG PO (08:04)
[2024-05-31] MEDS: 0.9 % Sodium Chloride Flush 3 ML SYRINGE IVFLUSH (08:04)
[2024-05-31] MEDS: Folic Acid 1 MG TABLET PO (08:04)
[2024-05-31] MEDS: Famotidine 20 MG TABLET PO (08:04)
[2024-05-31] MEDS: Multivitamin TABLET 1 TAB PO (08:04)
[2024-05-31] MEDS: Thiamine HCL 100 MG TABLET PO (08:04)
[2024-05-31] MEDS: Escitalopram Oxalate 10 MG TABLET PO (08:04)
[2024-05-31 11:07] VITALS: BP 101/64; PULSE 75; RESP 16; TEMP 36.9; O2SAT 100
--- NOTE | 2024-05-31 11:11 | P.DS_ITS ---
DS: Providers Provider Date of Service: 05/31/24 Date of admission: 05/29/24 14:38 Date of discharge: 05/31/24 Primary care physician: Alejandra Roman Consults: 05/30/24 13:55 Addiction Medicine Provider Routine Consulting Provider: Addiction Covering Reason for consultation: Alcohol withdrawal Has provider been notified: No DS: Diagnosis Discharge Diagnosis (1) Alcohol withdrawal seizure: Status: Acute (2) Seizure-like activity: Status: Acute DS: Summary Hospital Course Hospital Course: 1-year-old female with a PMH significant for alcohol use disorder and depression?who presents to the ED after 2 witnessed episodes of unresponsiveness with tonic-clonic like movements. Pt has been feeling increasingly depressed th e past few months and recently started in outpatient therapy program at [facility]. Today pt was hoping to meet with a therapist to discuss medication changes. Was sitting in a group session when had two [id number] episodes of unresponsiveness with tonic-clonic like activity that was witnessed by staff. Pt was lowered to the ground by staff and participants, and did not have head strike or other trauma. EMS report pt was postictal, though was alert and oriented by the time she arrived to the ED. Pt does not remember this incident and denies any hx of previous seizures or alcohol withdrawal. Pt states that she has been drinking daily for the past few months. States ?something is broke in the and I am trying to numb it?. Last drink was last night before bedtime. Pt states has been drinking for ?strong? vodka drinks daily, often starting drinking when she wakes up. Pt has attempted to cut back on drinking at various times, but reports drank her normal amount yesterday. Admits to increased anxiety, but currently denies headache. No nausea, vomiting, abdominal pain. Denies auditory, visual, or tactile hallucinations. Pt was treated in the ED with IVF, Ativan 2 mg p.o., and started on phenobarb protocol. Pt admitted to the hospital for treatment and further evaluation of seizure-like activity in setting of acute alcohol withdrawal. Hospital Course Patient admitted to telemetry where monitor failed to show any acute dysrhythmias. She had no further seizure active duty during the course of her hospitalization. CIWA has remained 0 for the last 48 hours and she is feeling back to baseline. Long conversation with patient she is neither suicidal or homicidal in his anxious to resume her program at [facility] in a.m.. Per her recount her spot is still open. She will call in a.m.. At this point in time I believe she will be medically acceptable for discharge to home and follow up with outpatient program in a.m. Time Attestation Discharge Coordination Time (in mins): 35 Quality: Safe Use of Opioids Does Pt have an Active Cancer Diagnosis on the Problem List?: No Quality: Stroke Does the patient have a stroke diagnosis?: No Physical Exam Vital Signs: Vital Signs: Last Vital Signs Temp 98.5 F 05/31/24 07:52 Pulse 59 05/31/24 07:52 Resp 16 05/31/24 07:52 BP 100/60 05/31/24 07:52 Pulse Ox 99 05/31/24 07:52 O2 Del Method Room Air 05/31/24 07:52 BMI result Body Mass Index 24.7 Const: Other: Awake alert oriented x3 no acute distress Resp: Other: Clear to auscultation bilaterally no rales rhonchi or wheezes Cardio: Other: No S4; positive S1-S2; no S3 murmurs rubs or gallops GI: Other: Soft nontender nondistended normoactive bowel sounds Extrem: Other: No edema bilaterally DS: Data Data Completed and Pending Labs on day of discharge: Laboratory Results - last 24 hr 05/31/24 05/31/24 07:00 07:14 Hold Purple Top SEE NOTE Sodium 139 Potassium 3.5 Chloride 106 Carbon Dioxide 29 Anion Gap 8 L BUN 7 L Creatinine 0.58 Estim Creat Clear Calc 106.7 Estimated GFR > 60 Random Glucose 89 Calcium 8.4 Discharge Plan Discharge Anticipated Discharge Date/Time: 05/31/24 11:09 Patient Disposition: Home, Self-Care Discharge Diagnosis: Alcohol withdrawal seizure [facility] Discharge Medications: Continued clonidine HCl 0.2 mg tablet 0.2 mg PO BID citalopram 20 mg tablet 20 mg PO DAILY buspirone 15 mg tablet 15 mg PO TID Discharge Orders: Discharge Order (Routine); Ordered 05/31/24 Ordered By: Nathaniel Urena Diet: Advance to usual diet Activity on Discharge: As tolerated Stand Alone Forms: Patient Portal Discharge page Print Language: Occitan Care Plan Goals: Resume all medicines as taken prior to hospitalization. Avoid alcohol at all cost Health Concerns: Call [facility] in a.m. to resume your inpatient outpatient program Plan of Treatment: Follow up with your PCP next available Assessment: See discharge summary
--- NOTE | 2024-05-31 11:32 | HO.ADDICT_ITS ---
History of Present Illness Date of Service: 05/31/2024 Chief Complaint: Alcohol Withdrawal Reason for Consult: AUD Discussed with referring provider: Yes Sources of Information: patient interviewed and chart reviewed HPI Narrative: Patient is a 38 year old female who presented to [facility] ED following witnessed seizure in IOP group. Subsequently admitted with alcohol withdrawal. Patient seen in room 469. She is awake, alert, pleasant and engaged in interview. She reports drinking for some time, however it increased significantly in February 2024, unclear precipitant. Since then she continued drinking daily, and attempted to taper, but experienced withdrawal sx. Denies any history of treatment for AUD, aside from [facility] that she was attending when she had a withdrawal seizure. Drinking numerous vodka drinks daily Denies any other substance use, however, does report a history of OUD, with last use over 20 years and previously in treatment with [facility] (suboxone). She states she self tapered suboxone, and has not taken it it in 2-3 months---which she acknowledges also contributed to increase in drinking to manage any lingering withdrawal sx. Denies any withdrawal sx when seen and appeared overall comfortable, no tremor, diaphoresis or restlessness noted. Discussed supports--states she has a therapist she sees 2x/week. Also says she saw a new psychiatrist recently. AUDIT-C Brief Intervention This commercial lines underwriter met with patient to discuss current alcohol use and concerns related to increased risk of alcohol related problems. Discussed how alcohol use has impacted health, including negative impact on mental health and overall physical wellbeing. Discussed risk reduction strategies including drinking below the recommended limit. Review of Systems Constitutional: Reports as per HPI and Denies headache(s) Denies headache(s) Gastrointestinal: Denies loose stools, Denies nausea and Denies vomiting Denies headache(s) Psychiatric: Reports anxiety and Reports depression Diagnostics Vital Signs (24Hr): Vital Signs - 24 hr 05/30/24 15:38 05/30/24 20:00 05/30/24 23:35 Temperature 97.6 F 99.3 F 97.8 F Pulse Rate 90 83 64 Respiratory Rate 18 18 18 Blood Pressure 109/65 112/61 117/57 L Pulse Oximetry 100 99 99 Oxygen Delivery Method Room Air Room Air 05/31/24 03:26 05/31/24 07:52 05/31/24 11:07 Temperature 98.2 F 98.5 F 98.5 F Pulse Rate 77 59 75 Respiratory Rate 18 16 16 Blood Pressure 115/75 100/60 101/64 Pulse Oximetry 100 99 100 Oxygen Delivery Method Room Air Room Air Room Air BMI result Body Mass Index 24.7 Labs 05/30/24 05:48 05/31/24 07:14 Labs: Laboratory Results - last 48 hr 05/29/24 05/29/24 05/29/24 13:00 13:01 13:02 WBC 4.3 L RBC 3.53 L Hgb 11.9 L Hct 33.8 L MCV 95.8 MCH 33.7 H MCHC 35.2 H RDW 12.7 Plt Count 93 L MPV 12.1 Immature Gran % (Auto) 0.5 H Neut % (Auto) 82.8 H Lymph % (Auto) 10.8 L Mower % (Auto) 4.1 Eos % (Auto) 0.9 Baso % (Auto) 0.9 Lymph # (Auto) 0.5 L Mower # (Auto) 0.2 Eos # (Auto) 0.0 Baso # (Auto) 0.0 Abs Immat Gran (auto) 0.02 Absolute Neuts (auto) 3.6 Absolute Nucleated RBC 0.000 Nucleated RBC % (auto) 0.0 Hold Purple Top PT INR APTT Sodium 140 Potassium 3.2 L Chloride 105 Carbon Dioxide 23 Anion Gap 15 BUN 8 L Creatinine 0.56 Estim Creat Clear Calc 110.5 Estimated GFR > 60 Random Glucose 163 H Lactic Acid 4.2 H* Lactic Acid F/U @ 2Hr Calcium 8.4 Magnesium 1.4 L* Total Bilirubin 1.0 AST 243 H ALT 172 H Alkaline Phosphatase 81 Total Protein 6.2 L Albumin 3.7 Lipase 122 H Ethyl Alcohol 41 Influenza Type A (PCR) NEGATIVE Influenza Type B (PCR) NEGATIVE RSV RNA Qual (PCR) NEGATIVE SARS-CoV-2 RNA (RT-PCR) NEGATIVE 05/29/24 05/30/24 05/31/24 15:17 05:48 07:00 WBC 3.8 L RBC 3.56 L Hgb 11.9 L Hct 35.2 L MCV 98.9 H MCH 33.4 H MCHC 33.8 RDW 12.5 Plt Count 96 L MPV 13.3 H Immature Gran % (Auto) Neut % (Auto) Lymph % (Auto) Mower % (Auto) Eos % (Auto) Baso % (Auto) Lymph # (Auto) Mower # (Auto) Eos # (Auto) Baso # (Auto) Abs Immat Gran (auto) Absolute Neuts (auto) Absolute Nucleated RBC 0.000 Nucleated RBC % (auto) 0.0 Hold Purple Top SEE NOTE PT 11.4 INR 1.0 APTT 29.8 Sodium 140 Potassium 3.2 L Chloride 105 Carbon Dioxide 26 Anion Gap 12 BUN 7 L Creatinine 0.57 Estim Creat Clear Calc 108.5 Estimated GFR > 60 Random Glucose 104 Lactic Acid Lactic Acid F/U @ 2Hr 1.6 Calcium 8.5 Magnesium 2.0 Total Bilirubin AST ALT Alkaline Phosphatase Total Protein Albumin Lipase Ethyl Alcohol Influenza Type A (PCR) Influenza Type B (PCR) RSV RNA Qual (PCR) SARS-CoV-2 RNA (RT-PCR) 05/31/24 07:14 WBC RBC Hgb Hct MCV MCH MCHC RDW Plt Count MPV Immature Gran % (Auto) Neut % (Auto) Lymph % (Auto) Mower % (Auto) Eos % (Auto) Baso % (Auto) Lymph # (Auto) Mower # (Auto) Eos # (Auto) Baso # (Auto) Abs Immat Gran (auto) Absolute Neuts (auto) Absolute Nucleated RBC Nucleated RBC % (auto) Hold Purple Top PT INR APTT Sodium 139 Potassium 3.5 Chloride 106 Carbon Dioxide 29 Anion Gap 8 L BUN 7 L Creatinine 0.58 Estim Creat Clear Calc 106.7 Estimated GFR > 60 Random Glucose 89 Lactic Acid Lactic Acid F/U @ 2Hr Calcium 8.4 Magnesium Total Bilirubin AST ALT Alkaline Phosphatase Total Protein Albumin Lipase Ethyl Alcohol Influenza Type A (PCR) Influenza Type B (PCR) RSV RNA Qual (PCR) SARS-CoV-2 RNA (RT-PCR) Imaging Radiology Impressions: ITS Impressions Head CT 05/29/24 16:22 IMPRESSION: No acute intracranial abnormality. Electronically signed by: Porfirio Berman MD 05/29/2024 04:43 PM EDT Mental Status Exam Mental Status Exam Patient Appearance: Appropriate Level of Consciousness: Awake, Appropriate and Alert Patient Behavior: Appropriate and Talkative Affect Description: Appropriate Speech Pattern: Clear Judgement: Good Medications Medications Current Medications Acetaminophen (Acetaminophen 325 Mg Tablet) 650 mg PO Q6H PRN PRN Reason: Pain, Mild 1-3,fever,headache Last Admin: 05/30/24 07:46 Dose: 650 mg Buspirone HCl (Buspirone Hcl 5 Mg Tablet) 15 mg PO TID [facility] Last Admin: 05/31/24 08:04 Dose: 15 mg Calcium Carbonate (Calcium Carbonate 750 Mg Tab.Chew) 750 mg PO Q4H PRN PRN Reason: Heartburn Clonidine HCl (Clonidine Hcl 0.2 Mg Tablet) 0.2 mg PO BID [facility]; Protocol Last Admin: 05/31/24 08:04 Dose: 0.2 mg Enoxaparin Sodium (Enoxaparin Sodium 40 Mg/0.4 Ml Syringe) 40 mg SUBCUT Q24H [facility] Last Admin: 05/30/24 15:49 Dose: 40 mg Escitalopram Oxalate (Escitalopram Oxalate 10 Mg Tablet) 10 mg PO DAILY [facility] Last Admin: 05/31/24 08:04 Dose: 10 mg Famotidine (Famotidine 20 Mg Tablet) 20 mg PO BID [facility] Last Admin: 05/31/24 08:04 Dose: 20 mg Folic Acid (Folic Acid 1 Mg Tablet) 1 mg PO DAILY [facility] Stop: 06/01/24 14:54 Last Admin: 05/31/24 08:04 Dose: 1 mg Magnesium Hydroxide (Milk Of Magnesia 30 Ml Oral.Susp) 30 ml PO DAILY PRN PRN Reason: Constipation Multivitamins/Vitamin C (Multivitamin Tablet) 1 tab PO DAILY [facility] Stop: 06/01/24 14:54 Last Admin: 05/31/24 08:04 Dose: 1 tab Pharmacy Consult (Consult Rx Etoh Phenob Im/Po) 1 each MISCELLANE ONCE PRN; Protocol PRN Reason: Consult order Phenobarbital (Phenobarbital 30 Mg Tablet) 30 mg PO BID [facility] Stop: 05/31/24 21:01 Last Admin: 05/31/24 08:04 Dose: 30 mg Phenobarbital (Phenobarbital 15 Mg Tablet) 15 mg PO BID [facility] Stop: 06/02/24 21:01 Phenobarbital (Phenobarbital 15 Mg Tablet) 15 mg PO DAILY [facility] Stop: 06/04/24 09:01 Sodium Chloride (0.9 % Sodium Chloride Flush 3 Ml Syringe) [facility] Last Admin: 05/31/24 08:04 Dose: 3 ml Thiamine HCl (Thiamine Hcl 100 Mg Tablet) 100 mg PO DAILY [facility] Stop: 06/01/24 14:59 Last Admin: 05/31/24 08:04 Dose: 100 mg Allergies Allergies Allergy/AdvReac Type Severity Reaction Status Date / Time No Known Allergies Allergy Verified 05/29/24 11:44 Assessment & Plan Assessment & Plan (1) Alcohol use disorder: Status: Acute Code(s): F10.90 - Alcohol use, unspecified, uncomplicated Assessment and Plan: * Discussed RAY, patient agreeable to med trial * naltrexone 50mg QD--discussed dosing, side effects, and goals of medication. Provided with written information as well * Return to [facility] tmrw Total time managing care of this patient today __40__ minutes. [facility] Past Medical History Medical History (Updated 05/31/24 @ 11:32 by Lacie Gutierres CNP) Depression Alcohol use disorder Social History Social History Household Members: Children Housing: House Alcohol intake: current Alcohol intake frequency: 3 or more drinks per day Comment: Steady gait noted. Patient Tobacco Use Status: Never used Tobacco service: No
--- NOTE | 2024-05-31 11:38 | MHC.CM.PN ---
Pt has been medically cleared for DC, she will go home via Lyft, plan is self care.
[2024-06-01 08:22] LABS: HBS Num1 14.85 mIU/mL (0-7.99); HBc Num1 0.11 S/CO (0.00-0.79); HBsAGNum1 0.33 S/CO (0.00-0.99); Hepatitis B Core Antibody Nonreactive (Nonreactive); Hepatitis B Surface Antigen Negative (Negative); ~HepC Num1 0.19 S/CO (0.00-0.79); ~Hepatitis B Surface Antibody REACTIVE (Nonreactive); ~Hepatitis C Antibody Nonreactive (Nonreactive)
[2024-06-02 08:08] LABS: Hepatitis A Antibody IgM 0.17 Index (0-0.79); ~Hepatitis A Antibody IgM Nonreactive (Nonreactive)
== END 2024-05-31 12:33 | disposition home or self-care (01) | DRG 775 ==
LOC: HO.ED 14:04 → HO.EDOVER 15:02 → HO.IMC 19:30
PROVIDERS: Physician Assistant; Admitting Provider Student in an Organized Health Care Education/Training Program; Emergency Provider Emergency Medicine Emergency Medical Services; PCP Internal Medicine; Visit Provider Hospitalist
DX: F10.139 Alcohol abuse with withdrawal, unspecified (principal); E87.21 Acute metabolic acidosis; K70.10 Alcoholic hepatitis without ascites; R56.9 Unspecified convulsions; F32.A Depression, unspecified; R94.31 Abnormal electrocardiogram [ECG] [EKG]; E83.42 Hypomagnesemia; E87.6 Hypokalemia; Y90.2 Blood alcohol level of 40-59 mg/100 ml; Z71.41 Alcohol abuse counseling and surveillance of alcoholic; Z20.822 Contact with and (suspected) exposure to COVID-19; Z79.899 Other long term (current) drug therapy
CPT/HCPCS: 0241U; 36415; 70450; 80048; 80053; 80307; 83605; 83690; 83735; 85025; 85027; 85610; 85730; 86704; 86706; 86709; 86803; 87340; 93005; 99285; J1650; J2560; J3475

== ENCOUNTER → 2024-05-29 12:12 | Outpatient (BNV) | payer OTHER, SELFPAY | PROVIDERS: Admitting Provider Student in an Organized Health Care Education/Training Program; Emergency Provider Emergency Medicine Emergency Medical Services; Visit Provider Internal Medicine Cardiovascular Disease | DX: R94.31 Abnormal electrocardiogram [ECG] [EKG] (principal); R56.9 Unspecified convulsions | CPT/HCPCS: 93010 ==

== ENCOUNTER 2024-05-29 14:38 | Outpatient (BNV) | payer OTHER, SELFPAY | END 2024-05-29 16:22 | PROVIDERS: Admitting Provider Student in an Organized Health Care Education/Training Program; Emergency Provider Emergency Medicine Emergency Medical Services; Visit Provider Radiology Diagnostic Radiology | DX: R56.9 Unspecified convulsions (principal) | CPT/HCPCS: 70450 ==

== ENCOUNTER → 2024-05-29 14:38 | Outpatient (BNV) | payer OTHER, SELFPAY | PROVIDERS: Admitting Provider Student in an Organized Health Care Education/Training Program; Emergency Provider Emergency Medicine Emergency Medical Services; Visit Provider Hospitalist | DX: F10.939 Alcohol use, unspecified with withdrawal, unspecified (principal); R56.9 Unspecified convulsions | CPT/HCPCS: 99233; 99239 ==

== ENCOUNTER → 2024-05-29 14:38 | Outpatient (BNV) | payer OTHER, SELFPAY | PROVIDERS: Admitting Provider Student in an Organized Health Care Education/Training Program; Emergency Provider Emergency Medicine Emergency Medical Services; Visit Provider Nurse Practitioner Psychiatric/Mental Health | DX: F10.90 Alcohol use, unspecified, uncomplicated (principal) | CPT/HCPCS: 99232 ==

== ENCOUNTER 2024-09-08 10:15 | Outpatient (RCR) | payer OTHER, SELFPAY ==
[2024-08-24 11:41] VITALS: BMI 24.2
--- NOTE | 2024-08-24 13:05 | PC.ADMIT ---
Patient is a 38 year old single female who was referred to [facility] by [facility] where she was attending [facility] groups for the past month however she was referred to PHP d/t increased depression sxs along with attendance issues in relation to her mental health. Prior to attending [facility] patient was attending a dual diagnosis program at [facility] in May 2024. While at the program patient experienced 2 tonic clonic seizures on 05/28/24. Patient was medically assessed at [facility] ER afterwards. Patient stated she told staff at [facility] that she was tremulous prior to having a seizure. It was also noted in the records that patient reports she would drink during the day in order not to be sick. Patient reports she went to [facility] detox afterwards. Patient denied any other history of seizures. Patient stated she last had alcohol, drinking 1/2 pint of Vodka, last night. Reports drinking alcohol, specifically vodka, 2-3 days a week drinking 2-3 nips or a half pint for the past couple of weeks. Patient stated this is happening at night only. Denied drinking alcohol during the day. Her goal is to continue to cut down use and drink socially. Patient agreed to contact [facility] staff if having any alcohol withdrawal sxs. Patient educated about alcohol withdrawal sxs and advised to go to the ER if experiencing them. PHP staff is aware. Currently patient denied any sxs of alcohol withdrawal. She is alert and oriented x4. VSS BP 90/60 P 72. No tremors, no diaphoresis, no nausea, no vomiting, no headache, mild anxiety however patient stated that is ongoing for her, no agitation, no tactile disturbances, no AH, no VH, no confusion. Dr. Burk is aware. Patient is calm and cooperative. She presented with depressed mood and affect. She denied SI, no HI. She was given a copy of her safety plan if needed. Medications updated with patient and patient's pharmacy. She reports she is taking medications as prescribed. Stated she has a history of prescription for Naltrexone however took one dose and decided not to take it anymore as it made her feel restless.
[2024-08-24 13:12] VITALS: BP 90/60; PULSE 72
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
--- NOTE | 2024-08-26 13:36 | HO.PHP ---
PHP admin, Rosi, informed the team that Amber will not be in attendance to program today due to having issues with transportation. There were no safety concerns presented and she will be here tomorrow.
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
--- NOTE | 2024-08-28 09:50 | PC.NURSE ---
Patient is alert and oriented x4. BP 106/60 P 88. No tremulousness, no diaphoresis. No nausea, no vomiting, no AH.
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
--- NOTE | 2024-08-28 14:46 | HO.PHP ---
Case open and discussed in teams.
--- NOTE | 2024-09-01 11:19 | HO.PHP ---
Amber left a message for PHP admin, Rosi and stated that she was unable to fall asleep until one in the morning and her phone had , therefore, she did not wake up in time to attend program. Amber will be in attendance to program tomorrow.
[2024-09-02 09:41] VITALS: BP 108/68; PULSE 68; TEMP 36.9
--- NOTE | 2024-09-02 09:42 | PC.NURSE ---
Patient is alert and oriented x4. BP 108/68 P 68. Temp 98.4. Patient denied any sxs of alcohol withdrawal. No Nausea, no Vomiting, no tremor, no visible sweating, mildly anxious, no agitation, no tactile disturbances, no AH, no VH, no headache. Patient reports she has cut down her alcohol use. Stated she drank two nips last night.
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
--- NOTE | 2024-09-07 23:24 | PM.EVENT ---
Event Note Date of Service: 09/07/24 Event Note: Patient was scheduled to be seen by psychaitric follow up today however called out from program Time Spent With Patient Time: Total time managing care of this patient today ____ minutes.
--- NOTE | 2024-09-08 12:02 | HO.PHPPROGNO ---
Subjective Subjective Date of Service: 09/08/24 Reason For Visit: depression Interim History: Patient seen for follow-up, anticipating discharge at the end of program today.? Reached out to make PCP appointment with patient, since she has not been seen since discharge from hospital in May. There were some concerning findings on her lab work including elevated LFTs and pancytopenia. Her regular PCP Dr. Peng Hernandez was unavailable. She has an appointment with Macie Asif on September 22 at 11:30. She also notes 50 lb weight loss in the past 4 months. She has not had her menses in recent months does not recall last. She denies any other active medical issues or symptoms at this time. No further seziures since admission to hospital in May. She has been off citalopram now for 2 days and has been tolerating fluoxetine well. Denies any hopelessness or SI. She continues with intermittent alcohol use. She has a history of poor tolerance still naltrexone and is not a good candidate at this time for Antabuse but is open to a trial of acamprosate to help curb alcohol cravings. Reports no other acute issues or concerns. Medication compliant, medications well-tolerated. Denies any adverse effects.?Mood with situational anxiety.? Denies any hopelessness or SI. Denies thoughts of harming self or others at this time. Denies any aggressive ideation or HI. Denies any paranoia or AH or VH. Sleep, appetite, energy stable. Medication Compliance: Yes Side effects from medications: No Attending Groups: Yes Review of Systems Acute medical concerns: No Mental Status Exam Mental Status Exam Narrative: Alert, oriented, in no acute distress. Eye contact maintained. Mood anxious, affect subdued, appropriate. Speech normal. Thought process linear, coherent. Thought content related to stressors, denies SI or HI. No paranoia or delusional content elicited. No evidence of psychosis. Insight and judgment - fair but adequate. Diagnostics Vital Signs (24Hr): BMI result Body Mass Index 24.2 Assessment & Plan Assessment & Plan (1) Alcohol use disorder: Status: Acute Code(s): F10.90 - Alcohol use, unspecified, uncomplicated (2) Cocaine abuse: Status: Acute Code(s): F14.10 - Cocaine abuse, uncomplicated (3) MDD (major depressive disorder), recurrent episode: Status: Acute Code(s): F33.9 - Major depressive disorder, recurrent, unspecified (4) Other mixed anxiety disorders: Status: Acute Code(s): F41.3 - Other mixed anxiety disorders (5) Attention and concentration deficit: Status: Acute Code(s): R41.840 - Attention and concentration deficit (6) Bereavement: Status: Acute Code(s): Z63.4 - Disappearance and of family member (7) Opioid dependence in remission: Status: Acute Code(s): F11.21 - Opioid dependence, in remission Plan Discharge from [facility] start acamprosate 333 mg TID and will increase to 666 mg TID in 4-6 days increase fluoxetine to 30 mg qam off citalopram cotninue amantadine 100 mg qhs as may be helpful to address cocaine cravings and complaints of chronic ADHD sx continue regular medications Routine lab work pending PCP at [facility] Dr. Hernandez. Refills sent to pharmacy Will defer further medication management to outpatient provider *Safety plan reviewed *Discharge diagnoses, treatment course, discharge plan have been reviewed with patient (including medication regime, medication management, potential side effects) as well as treatment rationale were also revisited *Discharge paperwork signed and given to patient, copy sent for scanning to chart Patient educated on: diagnosis, medication risk/benefits, substance abuse and medical condition Informed Consent: understands Reason for contiued partial hosp. stay Substantial Risk for: stable for discharge Certification I certify that partial hospital treatment is medically necessary due to the symptoms and problems resulting from the patient's mental illness and the failure to treat the patient at the partial hospital level of care would likely result in the patient requiring inpatient psychiatric care which could not be prevented at a less intensive level of care. Total time managing care of this patient today ____ minutes. Discharge Plan Discharge Attending provider: Valeria Bonner Medications: New fluoxetine 10 mg capsule 10 mg PO QAM Qty: 30 0RF amantadine HCl 100 mg tablet 100 mg PO DAILY Qty: 30 0RF fluoxetine 20 mg capsule 20 mg PO QAM Qty: 30 0RF diphenhydramine HCl 50 mg capsule 50 mg PO BEDTIME PRN (Reason: sleep) Qty: 60 0RF acamprosate 333 mg tablet,delayed release (DR/EC) 666 mg PO BID Qty: 120 0RF naloxone [Narcan] 4 mg/actuation spray,non-aerosol 1 spray intranasal Q2M Qty: 2 0RF Rx Instructions: spray 1 dose into ONE nostril; alternate nostrils w each dose until help arrives Continued clonidine HCl 0.2 mg tablet 0.2 mg PO BID buspirone 15 mg tablet 15 mg PO TID Qty: 90 0RF Discontinued citalopram 40 mg Tablet 40 mg PO DAILY trazodone 50 mg Tablet 25 mg PO BEDTIME Rx Instructions: Take 1/2 tab 30 minutes before bed. Stand Alone Forms: Patient Portal Discharge page Patient Education: Depression (ED), Alcohol Use Disorder (ED), Alcohol Use Disorder (DC) Print Language: [place]orese
== END 2024-09-08 23:59 | disposition home or self-care (01) ==
LOC: HO.PHPA 10:15
PROVIDERS: Visit Provider Psychiatry & Neurology Psychiatry
DX: F10.90 Alcohol use, unspecified, uncomplicated (principal); F14.10 Cocaine abuse, uncomplicated; F33.9 Major depressive disorder, recurrent, unspecified; F41.3 Other mixed anxiety disorders; R41.840 Attention and concentration deficit; F11.21 Opioid dependence, in remission; Z79.899 Other long term (current) drug therapy; Z63.4 Disappearance and death of family member
CPT/HCPCS: 90791; 90853

== ENCOUNTER → 2024-09-08 12:48 | Outpatient (REF) | payer OTHER, SELFPAY ==
--- NOTE | 2024-09-08 12:54 | ECG_ITS ---
Test Reason : QTC CHECK Blood Pressure : */* mmHG Vent. Rate : 69 BPM Atrial Rate : 69 BPM P-R Int : 122 ms QRS Dur : 80 ms QT Int : 426 ms P-R-T Axes : 42 30 63 degrees QTcB Int : 456 ms Normal sinus rhythm Normal ECG When compared with ECG of 29-May-2024 12:12, T wave amplitude has increased in Anterior leads QT has shortened Referred By: Valeria Bonner Electronically Signed By: Gabriel Rush
[2024-09-08 13:24] LABS: MANUAL DIFF FLAG NO
--- OUTSIDE RECORDS SUMMARY | 2024-09-08 13:50 | XMS_ITS | Clinical Summary ---
Author Organization [place] [address] [facility] Building Address [address] [place] [address] Phone Care Team Providers Care Geospatial Extractor Analysis Name Role Phone Peng Hernandez MD Primary Care Provider [phone] Allergies No known active allergies Medications BUPRENORPHINE HCL SL Place 1 mg under the tongue daily. Active ondansetron (ZOFRAN) 4 mg tablet Take 1 Tablet by mouth every 8 hours as needed for Nausea for up to 7 days. 4 Active citalopram (CeleXA) 20 mg tablet Take 1 tablet (20 mg total) by mouth 1 (one) time each day. 90 tablet 1 4 Active cloNIDine (CATAPRES) 0.2 mg tabletIndicatio ns:Anxiety disorder, unspecified TAKE 1 TABLET BY MOUTH TWICE A DAY 90 tablet 1 5 Active busPIRone (BUSPAR) 15 mg tablet TAKE 1 TABLET BY MOUTH THREE TIMES A DAY 270 tablet 5 Active traZODone (DESYREL) 50 mg tablet TAKE 1/2 TABLET BY MOUTH ONCE DAILY 30 MINUTES BEFORE BED 15 tablet 5 Active citalopram (CeleXA) 40 mg tablet TAKE 1 TABLET BY MOUTH 1 TIME EACH DAY. 30 tablet 5 Active traZODone (DESYREL) 50 mg tablet TAKE 1/2 TABLET BY MOUTH ONCE DAILY 30 MINUTES BEFORE BED 30 tablet 5 025 Discontinued citalopram (CeleXA) 40 mg tablet TAKE 1 TABLET BY MOUTH 1 TIME EACH DAY. 30 tablet 5 025 Discontinued Active Problems Problem Noted Date Diagnosed Date Snoring 01/29/2020 Overview (12/04/2023): 12/2019 Home Sleep Study did not reveal sleep apnea or nocturnal hypoxia. Tobacco use disorder 04/08/2012 Anxiety and depression 09/19/2011 Overview (12/04/2023): Sees therapist Opiate dependence ([facility] V24, [facility] V28) 02/2011 Overview (12/04/2023): suboxone Encounters Date Type Department Care Team Description 09/08/2024 [facility] [address] [facility] [place] [address] Peng Hernanedz MD PT1 06/15/2024 Telephone [facility] - [facility] [address] [place], [place] [address] [id number] Peng Hernandez MD Letter for School/Work from Last 3 Months Immunizations Name Administration [...] 09/19/2011 DX:Depression Drug abuse and dependence ([facility] [place] V24, [facility] V28) 09/19/2011 DX:Drug abuse and dependence (HCC) [...] Care Team (Late st Contact Info) Description 09/22/2024 11:30 AM EDT Office Visit Internal Medicine - [address] [phone] Macie Asif NP [address] [place] [id number] Health Maintenance Due Date Last Done Comments Breast Cancer Screening 1985 Hepatitis A Vaccines (1 of 2 - Risk 2-dose series) 11/19/2002 Hepatitis B Vaccines (1 of 3 - 19+ 3-dose series) 11/19/2002 Pneumococcal Vaccine: Pediatrics (0 to 5 Years) and At-Risk Patients (6 to 49 Years) (1 of 2 - PCV) 11/19/2002 Social Influencers of Health Screening 01/27/2022 COVID-19 Vaccine ( - 2023-2 5 season) 2023 Depression Screening 02/19/2024 08/20/2023 Cholesterol Screening (Lipid Panel) 08/18/2024 08/19/2019 Influenza Vaccine (#1) 2024 0, 01/16/2017 Cervical Cancer Screening: HPV 01/24/2025 01/25/2020 [...] Health Maintenance Results * Depression Screening (08/20/2023) Depression Screening abstracted us Historical Provider HEALTH MAINTENANCE Final Result * Cervical Cancer Screening: HPV (01/25/2020) Pathologist [facility] Cervical Cancer Screening: HPV negative, abstracted us Historical Provider HEALTH MAINTENANCE Final Result * (ABNORMAL) Lipid panel (08/19/2019) Pathologist [facility] LDL/HDL Ratio 5(A) 0 - 4 Triglycerides 63 0 - 150 mg/dL Cholesterol 195 0 - 200 mg/dL HDL 42 >=40 mg/dL LDL Cholesterol 141(A) 0 - 100 mg/dL Blood Venous blood specimen / Unknown Result [facility] Provider LAB BLOOD ORDERABLES Anaya l Result * HIV Screening (01/16/2017) Pathologist [facility] HIV Screening abstracted Result [facility] Provider HEALTH MAINTENANCE Final Result * Hepatitis C Screening (01/16/2017) Pathologist [facility] Hepatitis C Screening abstracted [facility] Provider HEALTH MAINTENANCE Final Result from Last 3 Months or Most Recently Relevant to Health Maintenance Insurance * Guarantor: Amber Leblanc Account Type Relation to Patient Date of Phone Billing Address Personal/Family Self 1985 [address] [place] [address] [facility] [employer] Care Teams Geospatial Extractor Analysis Relationship Specialty Start Date End Date Peng Hernandez MD [address] [place], [place] [address]ial [facility] [place] [address] PCP - General Internal Medicine 12/26/23
[2024-09-08 14:07] LABS: Hematocrit 45.9 % (37.0-47.0); Hemoglobin 15.3 g/dl (12.0-16.0); Imm Gran Abs Auto 0.02 X10*3/uL (0.00-0.03); Imm Gran Pct Auto 0.3 % (0.0-0.4); Lymphocytes Absolute Auto 1.9 X10*3/uL (1.2-4.9); Mean Corpuscular HGB Conc 33.3 g/dl (31.0-35.0); Mean Corpuscular Hemoglobin 31.8 pg (27.0-33.0); Mean Corpuscular Volume 95.4 fL (80.0-98.0); NRBC Abs Auto 0.000 X10*3/uL (0.0-0.012); NRBC Pct Auto 0.0 /100WBC (0.0-0.2); Platelet Count 259 X10*3/uL (160-400); Red Blood Count 4.81 X10*6/uL (4.20-5.50); White Blood Count 7.3 X10*3/uL (4.8-10.8)
[2024-09-08 14:27] LABS: Hemoglobin A1C 127.0603 umol/L; Total Hemoglobin (HGBA1C) 3935.1141 umol/L
[2024-09-08 15:08] LABS: Alanine Aminotransferase 27 U/L (0-31); Albumin Level 4.0 g/dL (3.5-5.0); Alkaline Phosphatase 71 U/L (39-117); Anion Gap 11 (12-20); Aspartate Amino Transferase 28 U/L (5-31); Blood Urea Nitrogen 7 mg/dL (9-16); Calcium 9.0 mg/dL (8.4-10.2); Carbon Dioxide 27 mmol/L (22-29); Chloride 108 mmol/L (96-108); Estimated Glomerular Filt Rate > 60; Iron 101 mcg/dL (30-160); Lipase 35 U/L (8-78); Magnesium 1.7 mg/dL (1.6-2.6); Percent Iron Saturation 35 % (15-50); Potassium 4.0 mmol/L (3.3-5.1); Sodium 142 mmol/L (135-145); Total Iron Binding Capacity 289 mcg/dL (228-428); Total Protein 6.9 g/dL (6.5-8.0); Unsaturated Iron Binding 188 ug/dL
[2024-09-08 15:26] LABS: Folate 8.2 ng/mL (> or = 4.0); Vitamin B12 183 pg/mL (200-900)
[2024-09-08 15:44] LABS: Free T4 (Free Thyroxine) 0.89 ng/dL (0.71-1.85); Thyroid Stimulating Hormone 0.90 uIU/mL (0.32-4.0)
[2024-09-08 15:50] LABS: CT PCR Urine NOT DETECTED (Not Detect.); NG PCR Urine NOT DETECTED (Not Detect.)
[2024-09-09 08:13] LABS: HBS Num1 16.06 mIU/mL (0-7.99); HBc Num1 0.07 S/CO (0.00-0.79); HBsAGNum1 0.36 S/CO (0.00-0.99); HIV Num 1 0.06 S/CO (0.00-0.99); Hepatitis B Surface Antigen Negative (Negative); ~HepC Num1 0.18 S/CO (0.00-0.79); ~Hepatitis B Surface Antibody REACTIVE (Nonreactive); ~Hepatitis C Antibody Nonreactive (Nonreactive)
[2024-09-09 08:20] LABS: Syphilis Screen Nonreactive (Nonreactive)
== END ==
LOC: HO.CARD 12:48
PROVIDERS: PCP Internal Medicine; Visit Provider Psychiatry & Neurology Psychiatry
DX: Z11.4 Encounter for screening for human immunodeficiency virus [HIV] (principal); Z11.59 Encounter for screening for other viral diseases; Z11.3 Encounter for screening for infections with a predominantly sexual mode of transmission; F33.2 Major depressive disorder, recurrent severe without psychotic features; F10.99 Alcohol use, unspecified with unspecified alcohol-induced disorder
CPT/HCPCS: 36415; 80053; 82306; 82607; 82746; 83036; 83090; 83540; 83615; 83690; 83735; 84425; 84439; 84443; 85025; 86704; 86706; 86780; 86803; 87340; 87389; 87491; 87591; 93005

== ENCOUNTER → 2024-09-08 12:54 | Outpatient (BNV) | payer OTHER, SELFPAY | PROVIDERS: PCP Internal Medicine; Visit Provider Internal Medicine Cardiovascular Disease | DX: Z13.6 Encounter for screening for cardiovascular disorders (principal) | CPT/HCPCS: 93010 ==